=== PATIENT | female | born 1945 | race Caucasian/White ===

== ENCOUNTER 2017-03-20 12:14 | Inpatient (IN) | payer MEDICARE ==
[~2017-03-20] VITALS: Ht 157.5 cm; Wt 51.6 kg
[2017-03-20] MEDS ORDERED: diphenhydrAMINE HCL 50 MG CAP - HS PRN PO (16:15)
[2017-03-20] MEDS ORDERED: diphenhydrAMINE HCL 50 MG/ML VIAL - HS PRN IM (16:15)
[2017-03-20] MEDS ORDERED: MAGNESIUM HYDROXIDE SUSP 30 ML CUP PO PRN (16:15)
[2017-03-20] MEDS ORDERED: ALUMINUM/MAGNESIUM/SIMETH 30 ML CUP PO PRN (16:15)
[2017-03-20] MEDS: ACETAMINOPHEN 325 MG TAB PO PRN (17:48)
[2017-03-20 18:08] VITALS: BP 126/69; PULSE 107; RESP 18; TEMP 98.8; O2SAT 97
[2017-03-20] MEDS ORDERED: PILL SPLITTER OTHER PRN (19:00)
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
[2017-03-20] MEDS: REMOVE OLD NICOTINE PATCH T-DERMAL SCH (21:00)
[2017-03-20] MEDS: hydrOXYzine HCL 50 MG TAB PO PRN ×2 (21:30→21:53)
--- NOTE | 2017-03-20 22:02 | RADRPT ---
EXAM DATE/TIME: 03/20/2017 20:27 [place] COMPARISON: No previous studies available for comparison. INDICATIONS : Left wrist pain post fall today MEDICAL HISTORY : None. SURGICAL HISTORY : None. ENCOUNTER: Initial ACUITY: 1 day PAIN SCORE: 8/10 LOCATION: Left entire wrist FINDINGS: Three view examination of the left wrist demonstrates no soft tissue swelling, dislocation, or fractu re. The carpal bones are in normal alignment. The joint spaces are maintained. Bony mineralization is normal. CONCLUSION: No acute disease. Thanh Canchola MD on March 20, 2017 at 21:59 Board Certified Radiologist. This report was verified electronically.
[2017-03-21] MEDS: ACETAMINOPHEN 325 MG TAB PO PRN ×4 (00:03→14:20)
[2017-03-21 05:55] VITALS: BP 153/76; PULSE 112; RESP 19; TEMP 97.9; O2SAT 98
[2017-03-21] MEDS: NICOTINE 21 MG/24 HR PATCH T-DERMAL SCH (08:25)
[2017-03-21] MEDS: hydrOXYzine HCL 50 MG TAB PO PRN (08:30)
[2017-03-21] MEDS ORDERED: SERTRALINE HCL 50 MG TAB PO ONE (09:00)
[2017-03-21 10:01] LABS: AUTOMATED NEUTROPHIL # 6.2 TH/MM3 (1.8-7.7); BASOPHIL % 0.3 % (0.0-2.0); EOSINOPHIL # 0.2 TH/MM3 (0-0.4); EOSINOPHIL % 2.2 % (0.0-4.0); HEMO FLAGS DIFF FINAL; LYMPH % 8.3 % (9.0-44.0); LYMPHOCYTE # 0.6 TH/MM3 (1.0-4.8); MEAN CELL VOLUME 92.6 FL (80.0-100.0); MEAN CORPUSCULAR HEMOGLOBIN 29.8 PG (27.0-34.0); MEAN CORPUSCULAR HGB CONC 32.2 % (32.0-36.0); MONO % 9.3 % (0.0-8.0); NEUT % 79.9 % (16.0-70.0); PLATELET COUNT 205 TH/MM3 (150-450); RED CELL DISTRIBUTION WIDTH 15.1 % (11.6-17.2); WHITE BLOOD COUNT 7.8 TH/MM3 (4.0-11.0)
--- NOTE | 2017-03-21 10:18 | PD.CONS ---
HPI Service CP Hospitalists Consult Requested By Dr. Cardoza Reason for Consult Assistance with management of multiple medical conditions Primary Care Physician Unknown Diagnoses: History of Present Illness This is a 71-year-old female patient with a past medical history which includes depression, COPD on chronic oxygen therapy, CAD, diastolic CHF last ejection fraction 60% 2016, TIA, CVA with no residual effects, chronic pain as well as history of opioid miss use. This was transferred to [facility] inpatient psychiatric center after being treated outside hospital for fall. Patient was found have suicidal ideations and was transferred to inpatient psychiatric center. As per chart from previous hospital patient had Urine tox positive for amphetamines, shoulder x-ray showed no fracture dislocation, brain CT was negative for acute findings but noted to have cerebral atrophy, chest x- ray showed COPD. Impression from previous hospitalization was recent fall due to toxic encephalopathy secondary to overuse of [place] for pain. Patient this time reports feeling well offers no specific complaints. Patient denies chest pain short of breath nausea vomiting diarrhea, patient fevers or chills Review of Systems Constitutional: COMPLAINS OF: Fatigue, DENIES: Fever, Chills Eyes: DENIES: Blurred vision, Diplopia Respiratory: DENIES: Cough, Sputum production, Shortness of breath Cardiovascular: DENIES: Chest pain, Dyspnea on Exertion, Lower Extremity Edema Gastrointestinal: DENIES: Abdominal pain, Diarrhea, Nausea Neurologic: DENIES: Abnormal gait, Headache, Speech Problems Psychiatric: COMPLAINS OF: Depression, Suicidal Ideation, DENIES: Anxiety, Confusion Past Family Social History Past Medical History depression, COPD on chronic oxygen therapy, CAD, diastolic CHF last ejection fraction 60% 2016, TIA, CVA with no residual effects, chronic pain as well as history of opioid miss use Past Surgical History Hysterectomy and lumbar spine injections Reported Medications Aspirin 81 mg by mouth daily Nitroglycerin 0.1 mg per hour 24 hour patch Vitamin D 12 2000 international units daily Lidoderm 5% patch transdermally daily Cyclobenzaprine 10 mg by mouth 3 times a day Amitriptyline 50 mg by mouth daily at bedtime Dulera 200-5 2 puffs twice a day Fentanyl 25 g transdermal patch every 72 hours Ranitidine 75 mg tablet 1 tablet by mouth daily Duo nebs 4 times a day as needed Zofran 4 mg one tablet sublingually every 8 hours as needed for nausea and vomiting Metoprolol succinate 50 mg 1 tablet daily Lorazepam 0.5 g one tablet by mouth daily as needed for anxiety Allergies: Coded Allergies: Sulfa (Sulfonamide Antibiotics) (Verified Allergy, Severe, 03/20/17) baclofen (Verified Allergy, Severe, 03/20/17) carbamazepine (Verified Allergy, Severe, 03/20/17) celecoxib (Verified Allergy, Severe, 03/20/17) duloxetine (Verified Allergy, Severe, 03/20/17) gabapentin (Verified Allergy, Severe, 03/20/17) milnacipran (Verified Allergy, Severe, 03/20/17) prednisone (Verified Allergy, Severe, 03/20/17) pregabalin (Verified Allergy, Severe, 03/20/17) Active Ordered Medications Current Medications Medications (Trade) Dose Ordered Sig/Christen Route Start Time Stop Time Status Last Admin (Atarax) 50 mg Q6H PRN PO 03/20/17 16:15 03/20/17 21:30 (Benadryl) 50 mg HS PRN PO 03/20/17 16:15 (Benadryl Inj) 50 mg HS PRN IM 03/20/17 16:15 (Tylenol) 650 mg Q4H PRN PO 03/20/17 16:15 03/21/17 04:13 (Milk Of Magnesia Liq) 30 ml DAILY PRN PO 03/20/17 16:15 (Mag-Al Plus Susp Liq) 30 ml Q6H PRN PO 03/20/17 16:15 (Habitrol 21 Mg Patch.24 Hr) 1 patch DAILY T-DERMAL 03/21/17 09:00 Miscellaneous Information 1 HS T-DERMAL 03/20/17 21:00 03/20/17 21:00 (Zoloft) 50 mg DAILY PO 03/22/17 09:00 (Pill Splitter) 1 ea UNSCH PRN OTHER 03/20/17 19:00 (Duoneb Neb) 1 ampule Q6HR NEB PRN NEB 03/20/17 23:45 Family History Brother at 77 secondary to [place] Social History Patient lives at home with her is a retired RN Reports she quit smoking in 2005 Denies EtOH use or illicit drug use Physical Exam Vital Signs Vital Signs Date Time Temp Pulse Resp B/P (MAP) Pulse Ox O2 Delivery O2 Flow Rate FiO2 03/21/17 05:55 97.9 112 19 153/76 (101) 98 03/20/17 18:08 98.8 107 18 126/69 (88) 97 Physical Exam GENERAL: This is a well-nourished, well-developed patient, in no apparent distress. SKIN: No rashes, ecchymoses or lesions. Cool and dry. HEAD: Atraumatic. Normocephalic. No temporal or scalp tenderness. EYES: Pupils equal round and reactive. Extraocular motions intact. No scleral icterus. No injection or drainage. ENT: Nose without bleeding, purulent drainage or septal hematoma. Throat without erythema, tonsillar hypertrophy or exudate. Uvula midline. Airway patent. NECK: Trachea midline. No JVD or lymphadenopathy. Supple, nontender, no meningeal signs. CARDIOVASCULAR: Regular rate and rhythm without murmurs, gallops, or rubs. RESPIRATORY: Clear to auscultation. Breath sounds equal bilaterally. No wheezes , rales, or rhonchi. GASTROINTESTINAL: Abdomen soft, non-tender, nondistended. No hepato-splenomegaly , or palpable masses. No guarding. MUSCULOSKELETAL: Extremities without clubbing, cyanosis, or edema. No joint tenderness, effusion, or edema noted. No calf tenderness. Negative Homans sign bilaterally. NEUROLOGICAL: Awake and alert. Cranial nerves II through XII intact. Motor and sensory grossly within normal limits. Five out of 5 muscle strength in all muscle groups. Normal speech. Laboratory Laboratory Tests Test 03/21/17 09:10 Assessment and Plan Problem List: (1) Major depressive disorder ICD Codes: F32.9 - Major depressive disorder, single episode, unspecified Status: Acute Plan: Management per psychiatric team Patient currently an inpatient psychiatric center (2) HTN (hypertension) ICD Codes: I10 - Essential (primary) hypertension Status: Chronic Plan: Will continue patient's home metoprolol 50 mg by mouth daily Monitor blood pressure trend (3) COPD (chronic obstructive pulmonary disease) ICD Codes: J44.9 - Chronic obstructive pulmonary disease, unspecified Status: Acute Plan: Duo nebs as needed Does not appear to be in acute exacerbation at this time (4) Chronic pain ICD Codes: G89.29 - Other chronic pain Status: Chronic Plan: Patient has history of ventricular arrhythmias use. Review of outpatient records states that patient has been noncompliant in taking more her periods been prescribed recommended Ultram. Patient was also thought to have metabolic encephalopathy secondary to overuse of [place] at outside hospital. Ultram as needed for pain (5) CAD (coronary artery disease) ICD Codes: I25.10 - Atherosclerotic heart disease of [place] coronary artery without angina pectoris Status: Chronic Plan: Continue aspirin 81 mg by mouth daily in addition to metoprolol (6) CHF (congestive heart failure) ICD Codes: I50.9 - Heart failure, unspecified Status: Chronic Plan: Patient does not appear to be in acute exacerbation. Lasix is not listed on patient's home medication reconciliation recommend patient follow-up with PCP/cardiology after discharge (7) TIA (transient ischemic attack) ICD Codes: G45.9 - Transient cerebral ischemic attack, unspecified Status: Chronic Plan: Continue home aspirin 81 mg by mouth daily Assessment and Plan Patient examined. Assessment and plan formulated with Nanci Danielle PA-C. I agree with the above. Problem Qualifiers (1) Major depressive disorder: Qualified Codes: F33.1 - Major depressive disorder, recurrent, moderate Nanci Danielle Mar 21, 2017 10:18 Raphael Casillas DO Mar 27, 2017 12:53
[2017-03-21 10:25] LABS: BICARBONATE 36.5 MEQ/L (21.0-32.0); POTASSIUM 3.1 MEQ/L (3.5-5.1)
[2017-03-21 10:35] LABS: INDIRECT BILIRUBIN 0.4 MG/DL (0.0-0.8); TOTAL BILIRUBIN ADULT 0.5 MG/DL (0.2-1.0)
[2017-03-21] MEDS ORDERED: RANI150T PO (10:47)
[2017-03-21] MEDS ORDERED: METO1TAB9 PO (10:47)
[2017-03-21] MEDS ORDERED: DULE100A INH (10:47)
[2017-03-21] MEDS ORDERED: NORC5TAB PO (10:47)
[2017-03-21] MEDS ORDERED: NITR0.2D T-DERMAL (10:47)
[2017-03-21] MEDS ORDERED: FURO20TA PO (10:47)
[2017-03-21] MEDS ORDERED: AMIT50TA3 PO (10:47)
[2017-03-21] MEDS ORDERED: POTA10CA PO (10:47)
[2017-03-21] MEDS ORDERED: ALBUAER3 INH (10:47)
[2017-03-21] MEDS ORDERED: VENTAER INH (10:47)
[2017-03-21] MEDS ORDERED: ALPR.5 PO (10:47)
[2017-03-21] MEDS: METOPROLOL SUCCINATE 50 MG EXTENDED RELEASE TAB PO SCH (12:00)
[2017-03-21] MEDS: IBUPROFEN 400 MG TAB PO PRN (12:28)
[2017-03-21 17:54] VITALS: BP 121/68; PULSE 90; RESP 17; TEMP 97.7; O2SAT 97
--- NOTE | 2017-03-21 18:16 | HHI.PYPN ---
Subjective Remarks Patient was seen and case discussed with nursing. Patient continues to endorse depressed mood. She is feeling hopeless that she has not been to live for. Though, she denies suicidal ideation plan or intent. Continues to be treated by the medical team. Behaving well on the unit Mental Status Examination Appearance: Appropriate Consciousness: Alert Orientation: Person, Place, Date/Time Speech: Unremarkable Language: Adequate Fund of Knowledge: Adequate Attention and Concentration: Adequate Memory: Unremarkable Mood: Sad Affect: Sad Thought Process & Associations: Logical, Linear Thought Content: Appropriate Hallucination Type: None Delusion Type: None Suicidal Ideation: No Suicidal Plan: No Suicidal Intention: No Homicidal Ideation: No Homicidal Plan: No Homicidal Intention: No Insight: Fair Judgment: Impulsive Results Labs Test 03/21/17 09:10 White Blood Count 7.8 TH/MM3 Red Blood Count 4.00 MIL/MM3 Hemoglobin 11.9 GM/DL Hematocrit 37.0 % Mean Corpuscular Volume 92.6 FL Mean Corpuscular Hemoglobin 29.8 PG Mean Corpuscular Hemoglobin Concent 32.2 % Red Cell Distribution Width 15.1 % Platelet Count 205 TH/MM3 Mean Platelet Volume 9.0 FL Neutrophils (%) (Auto) 79.9 % Lymphocytes (%) (Auto) 8.3 % Monocytes (%) (Auto) 9.3 % Eosinophils (%) (Auto) 2.2 % Basophils (%) (Auto) 0.3 % Neutrophils # (Auto) 6.2 TH/MM3 Lymphocytes # (Auto) 0.6 TH/MM3 Monocytes # (Auto) 0.7 TH/MM3 Eosinophils # (Auto) 0.2 TH/MM3 Basophils # (Auto) 0.0 TH/MM3 CBC Comment DIFF FINAL Differential Comment Blood Urea Nitrogen 9 MG/DL Creatinine 0.44 MG/DL Random Glucose 94 MG/DL Total Protein 6.6 GM/DL Albumin 3.5 GM/DL Calcium Level 9.0 MG/DL Alkaline Phosphatase 77 U/L Aspartate Amino Transf (AST/SGOT) 10 U/L Alanine Aminotransferase (ALT/SGPT) 9 U/L Total Bilirubin 0.5 MG/DL Direct Bilirubin 0.1 MG/DL Sodium Level 144 MEQ/L Potassium Level 3.1 MEQ/L Chloride Level 103 MEQ/L Carbon Dioxide Level 36.5 MEQ/L Anion Gap 5 MEQ/L Estimat Glomerular Filtration Rate 140 ML/MIN Indirect Bilirubin 0.4 MG/DL Thyroid Stimulating Hormone 3rd Gen 0.310 uIU/ML Vitals/IOs Vital Signs Date Time Temp Pulse Resp B/P (MAP) Pulse Ox O2 Delivery O2 Flow Rate FiO2 03/21/17 17:54 97.7 90 17 121/68 (85) 97 Intake and Output 03/21/17 03/21/17 03/22/17 08:00 16:00 00:00 Intake Total 360 ml 240 ml Balance 360 ml 240 ml Assessment & Plan Problem List: (1) Major depressive disorder ICD Codes: F32.9 - Major depressive disorder, single episode, unspecified Assessment & Plan Continue current treatment plan Justification for Cont. Inpt. Patient will decompensate in a less restrictive setting Logan Moran DO Mar 21, 2017 18:16
[2017-03-21 20:55] VITALS: O2SAT 99
[2017-03-21] MEDS: RESP: ALBUTEROL 2.5 MG/IPRATROPIUM 0.5 MG NEB (PRN) NEB (20:55)
[2017-03-21] MEDS: REMOVE OLD NICOTINE PATCH T-DERMAL SCH (21:00)
[2017-03-22] MEDS: IBUPROFEN 400 MG TAB PO PRN (01:39)
[2017-03-22 05:35] VITALS: BP 137/70; PULSE 98; RESP 20; TEMP 98.1
[2017-03-22] MEDS: SERTRALINE HCL 50 MG TAB PO SCH ×2 (08:36→09:00)
[2017-03-22] MEDS: FAMOTIDINE 20 MG TAB PO SCH (08:36)
[2017-03-22] MEDS: METOPROLOL SUCCINATE 50 MG EXTENDED RELEASE TAB PO SCH (08:36)
[2017-03-22] MEDS: NICOTINE 21 MG/24 HR PATCH T-DERMAL SCH (09:00)
[2017-03-22] MEDS: POTASSIUM CHLORIDE 20 MEQ CONTROLLED RELEASE TAB PO SCH ×2 (11:17→16:18)
[2017-03-22] MEDS: ACETAMINOPHEN 325 MG TAB PO PRN ×2 (11:22→21:02)
[2017-03-22] MEDS: ALBUTEROL SULFATE 90 MCG/ACT HFA 8 GM INHALER INH PRN ×2 (16:17→20:59)
--- NOTE | 2017-03-22 17:19 | HHI.PYPN ---
Subjective Remarks Patient was seen and case discussed with nursing. Patient is compliant with medications and behaving well on the unit. Patient is refusing her Zoloft saying it gives her diarrhea. She is agreeable to Remeron. She is very bright and cheerful laughing and joking but still claims passive suicidal ideation. This does not seem to be congruent her behavior throughout the day. No longer asking for pain medications Mental Status Examination Appearance: Appropriate Consciousness: Alert Orientation: Person, Place, Date/Time Speech: Unremarkable Language: Adequate Fund of Knowledge: Adequate Attention and Concentration: Adequate Memory: Unremarkable Mood: Sad Affect: Sad Thought Process & Associations: Logical, Linear Thought Content: Appropriate Hallucination Type: None Delusion Type: None Suicidal Ideation: Yes (passive) Suicidal Plan: No Suicidal Intention: No Homicidal Ideation: No Homicidal Plan: No Homicidal Intention: No Insight: Fair Judgment: Impulsive Results Vitals/IOs Vital Signs Date Time Temp Pulse Resp B/P (MAP) Pulse Ox O2 Delivery O2 Flow Rate FiO2 03/22/17 05:35 98.1 98 20 137/70 (92) 03/21/17 20:55 99 Nasal Cannula 2.00 Intake and Output 03/22/17 03/22/17 03/23/17 08:00 16:00 00:00 Intake Total 240 ml Balance 240 ml Assessment & Plan Problem List: (1) Major depressive disorder ICD Codes: F32.9 - Major depressive disorder, single episode, unspecified Assessment & Plan DC Zoloft. Start Remeron 7.5 mg by mouth daily at bedtime Justification for Cont. Inpt. Patient would decompensate in a less restrictive setting Logan Moran DO Mar 22, 2017 17:19
[2017-03-22 17:51] VITALS: BP 143/67; PULSE 103; RESP 18; TEMP 98.1; O2SAT 94
[2017-03-22] MEDS: MIRTAZAPINE 15 MG TAB PO SCH (20:46)
[2017-03-22] MEDS: REMOVE OLD NICOTINE PATCH T-DERMAL SCH (21:00)
[2017-03-22] MEDS: DULERA INH SCH ×2 (21:00→21:29)
[2017-03-22] MEDS ORDERED: DULERA INH SCH (21:00)
[2017-03-23 05:22] VITALS: BP 147/69; PULSE 84; RESP 16; TEMP 97.6; O2SAT 98
[2017-03-23] MEDS: FAMOTIDINE 20 MG TAB PO SCH (08:39)
[2017-03-23] MEDS: METOPROLOL SUCCINATE 50 MG EXTENDED RELEASE TAB PO SCH (08:39)
[2017-03-23] MEDS: DULERA INH SCH ×2 (08:40→20:53)
[2017-03-23] MEDS: NICOTINE 21 MG/24 HR PATCH T-DERMAL SCH (09:00)
[2017-03-23] MEDS: ACETAMINOPHEN 325 MG TAB PO PRN ×2 (09:13→17:54)
[2017-03-23 10:44] LABS: FREE T4 1.15 NG/DL (0.76-1.46)
[2017-03-23 10:50] LABS: BICARBONATE 34.2 MEQ/L (21.0-32.0); MAGNESIUM 1.9 MG/DL (1.5-2.5); POTASSIUM 3.5 MEQ/L (3.5-5.1)
[2017-03-23] MEDS: IBUPROFEN 400 MG TAB PO PRN ×2 (11:43→20:52)
--- NOTE | 2017-03-23 15:46 | HHI.PYPN ---
Subjective Remarks Patient seen in day room with nurse Juan, patient on nasal oxygen. Chart reviewed. Patient compliant medications. Patient remains depressed states she continue suicidal within the suicide pill if offered. For now continue treatment Review of Systems Except as stated in HPI: all other systems reviewed are Neg Mental Status Examination Appearance: Appropriate Consciousness: Alert Orientation: Person, Place, Date/Time Speech: Unremarkable Language: Adequate Fund of Knowledge: Adequate Attention and Concentration: Adequate Memory: Unremarkable Mood: Sad Affect: Sad Thought Process & Associations: Logical, Linear Thought Content: Appropriate Hallucination Type: None Delusion Type: None Suicidal Ideation: Yes (patient states would take the suicide pill if offered) Suicidal Plan: Yes (patient states would take the suicide pill if offered) Suicidal Intention: Yes (patient states she would take the suicide pill if offered) Homicidal Ideation: No Homicidal Plan: No Homicidal Intention: No Insight: Fair Judgment: Impulsive Results Labs Test 03/23/17 09:33 Blood Urea Nitrogen 14 MG/DL Creatinine 0.63 MG/DL Random Glucose 147 MG/DL Calcium Level 9.5 MG/DL Magnesium Level 1.9 MG/DL Sodium Level 141 MEQ/L Potassium Level 3.5 MEQ/L Chloride Level 101 MEQ/L Carbon Dioxide Level 34.2 MEQ/L Anion Gap 6 MEQ/L Estimat Glomerular Filtration Rate 93 ML/MIN Free Thyroxine 1.15 NG/DL Vitals/IOs Vital Signs Date Time Temp Pulse Resp B/P (MAP) Pulse Ox O2 Delivery O2 Flow Rate FiO2 03/23/17 05:22 97.6 84 16 147/69 (95) 98 03/21/17 20:55 Nasal Cannula 2.00 Assessment & Plan Problem List: (1) Major depressive disorder ICD Codes: F32.9 - Major depressive disorder, single episode, unspecified Assessment & Plan Estimated LOS: days patient continue suicidal with intent taking suicide pill if offered. For now continue treatment Justification for Cont. Inpt. At this time patient will decompensate the placed in a lower level of care Discharge Planning Hopefully patient to return home with her Rolf Dey MD Mar 23, 2017 15:46
--- NOTE | 2017-03-23 16:03 | PD.TTN ---
Patient Problems 1. Discharge planning 2. Medication compliance 3. Knowledge deficit 4. Lack of coping skills Progress Toward Goals Provider Present: Dr. Shaun Dey Provider Input: Patient is a new admission and has not yet been seen. Psychiatric Counselors Present: HELEN Fregoso Psych Therapist Input: Patient is a new admission and has not yet been evaluated. Documentation Scribe: YUNIEL Fregoso Date Resolved: Mar 23, 2017 Lisa Vuong Mar 23, 2017 16:03
[2017-03-23 18:00] VITALS: BP 138/69; PULSE 101; RESP 16; TEMP 98.6; O2SAT 97
[2017-03-23] MEDS: MIRTAZAPINE 15 MG TAB PO SCH (20:52)
[2017-03-23] MEDS: REMOVE OLD NICOTINE PATCH T-DERMAL SCH (21:00)
[2017-03-24 05:10] VITALS: BP 142/84; PULSE 105; PULSE 115; RESP 16; TEMP 97.6; O2SAT 97
[2017-03-24] MEDS: METOPROLOL SUCCINATE 50 MG EXTENDED RELEASE TAB PO SCH (08:22)
[2017-03-24] MEDS: FAMOTIDINE 20 MG TAB PO SCH (08:22)
[2017-03-24] MEDS: DULERA INH SCH ×2 (08:30→20:10)
[2017-03-24] MEDS: NICOTINE 21 MG/24 HR PATCH T-DERMAL SCH (08:35)
[2017-03-24] MEDS: IBUPROFEN 400 MG TAB PO PRN ×2 (09:28→20:31)
[2017-03-24 11:20] VITALS: O2SAT 96
--- NOTE | 2017-03-24 13:13 | HHI.PYPN ---
Subjective Remarks Patient seen in her room with nurse Juan and counselor Lisa, chart reviewed, patient compliant medication. Patient on continuous nasal oxygen, she is calm pleasant. Continues to verify suicidal ideation though today she would not take the suicide pill. She has some insight into how devastating this would be to her family. For now continue treatment Review of Systems Except as stated in HPI: all other systems reviewed are Neg Mental Status Examination Appearance: Appropriate Consciousness: Alert Orientation: Person, Place, Date/Time Speech: Unremarkable Language: Adequate Fund of Knowledge: Adequate Attention and Concentration: Adequate Memory: Unremarkable Mood: Sad Affect: Sad Thought Process & Associations: Logical, Linear Thought Content: Appropriate Hallucination Type: None Delusion Type: None Suicidal Ideation: Yes (patient states would take the suicide pill if offered) Suicidal Plan: Yes (patient states would take the suicide pill if offered) Suicidal Intention: Yes (patient states she would take the suicide pill if offered) Homicidal Ideation: No Homicidal Plan: No Homicidal Intention: No Insight: Fair Judgment: Impulsive Results Vitals/IOs Vital Signs Date Time Temp Pulse Resp B/P (MAP) Pulse Ox O2 Delivery O2 Flow Rate FiO2 03/24/17 11:20 96 Nasal Cannula 2.00 03/24/17 05:10 97.6 105 16 142/84 (103) Intake and Output 03/24/17 03/24/17 03/25/17 08:00 16:00 00:00 Intake Total 0 ml Balance 0 ml Assessment & Plan Problem List: (1) Major depressive disorder ICD Codes: F32.9 - Major depressive disorder, single episode, unspecified Status: Acute Assessment & Plan Patient continues depressed vague suicidal ideation though she is pleasant and cooperative. For now continue treatment Estimated LOS: days Justification for Cont. Inpt. At this time patient will decompensate to place a lower level of care Discharge Planning Meet with patient's to discuss discharge plans Request HC Surrog/Guard Advoc?: No Problem Qualifiers (1) Major depressive disorder: Qualified Codes: F33.1 - Major depressive disorder, recurrent, moderate Rolf Dey MD Mar 24, 2017 13:13
[2017-03-24] MEDS: ACETAMINOPHEN 325 MG TAB PO PRN (15:51)
[2017-03-24 17:53] VITALS: BP 143/63; PULSE 101; RESP 16; TEMP 98.7; O2SAT 95
[2017-03-24] MEDS: MIRTAZAPINE 15 MG TAB PO SCH (20:08)
[2017-03-24] MEDS: REMOVE OLD NICOTINE PATCH T-DERMAL SCH (20:11)
[2017-03-25 01:45] VITALS: O2SAT 96
[2017-03-25] MEDS: RESP: ALBUTEROL 2.5 MG/IPRATROPIUM 0.5 MG NEB (PRN) NEB ×2 (01:45→17:00)
[2017-03-25] MEDS: hydrOXYzine HCL 50 MG TAB PO PRN ×2 (02:00→07:57)
[2017-03-25] MEDS: ACETAMINOPHEN 325 MG TAB PO PRN ×2 (02:01→20:35)
[2017-03-25 05:48] VITALS: BP 129/58; PULSE 92; RESP 20; TEMP 97.4; O2SAT 93
[2017-03-25] MEDS: DULERA INH SCH ×2 (07:55→21:20)
[2017-03-25] MEDS: IBUPROFEN 400 MG TAB PO PRN (07:57)
[2017-03-25] MEDS: FAMOTIDINE 20 MG TAB PO SCH (07:57)
[2017-03-25] MEDS: NICOTINE 21 MG/24 HR PATCH T-DERMAL SCH (07:59)
[2017-03-25] MEDS: METOPROLOL SUCCINATE 50 MG EXTENDED RELEASE TAB PO SCH (07:59)
[2017-03-25] MEDS: ALBUTEROL SULFATE 90 MCG/ACT HFA 8 GM INHALER INH PRN ×2 (09:00→13:00)
--- NOTE | 2017-03-25 11:22 | PD.TTN ---
Patient Problems 1. Discharge planning 2. Medication compliance 3. Knowledge deficit 4. Lack of coping skills Progress Toward Goals Provider Present: Dr. Shaun Dey Provider Input: 03/25/2017; per doctor there is no med change required at this time, patient continues to show some improvement Patient is a new admission and has not yet been seen. Nurse(s) Present: JONATHAN Baldwin Nurse(s) Input: Patient is having coughing episodes, due to COPD issues, she is taking meds and eating meals. Psychiatric Counselors Present: DANIS Estrella Psych Therapist Input: 03/25/2017; Patient will return home when stable, with home health service Patient is a new admission and has not yet been evaluated. Group Spec/RT/OT/DAO Present: SYLWIA Pearce Group Spec/RT/OT/DAO Input: Pateint attends pet therapy group with a pleasant mood Documentation Scribe: DANIS Estrella Date Resolved: Mar 23, 2017 Samara Pierre Mar 25, 2017 11:22
--- NOTE | 2017-03-25 11:29 | HHI.PYPN ---
Subjective Remarks Patient seen in her room with nurse Yolanda, chart review, patient compliant medications. Patient today somewhat vaguely denies suicidal ideation and voices. Though she continues to complain of a somewhat deep and productive cough will have medicine service assess Review of Systems Respiratory: COMPLAINS OF: Cough Except as stated in HPI: all other systems reviewed are Neg Mental Status Examination Appearance: Appropriate Consciousness: Alert Orientation: Person, Place, Date/Time Speech: Unremarkable Language: Adequate Fund of Knowledge: Adequate Attention and Concentration: Adequate Memory: Unremarkable Mood: Sad Affect: Sad Thought Process & Associations: Logical, Linear Thought Content: Appropriate Hallucination Type: None Delusion Type: None Suicidal Ideation: Yes (patient states would take the suicide pill if offered) Suicidal Plan: Yes (patient states would take the suicide pill if offered) Suicidal Intention: Yes (patient states she would take the suicide pill if offered) Homicidal Ideation: No Homicidal Plan: No Homicidal Intention: No Insight: Fair Judgment: Impulsive Results Vitals/IOs Vital Signs Date Time Temp Pulse Resp B/P (MAP) Pulse Ox O2 Delivery O2 Flow Rate FiO2 03/25/17 05:48 97.4 92 20 129/58 (81) 93 03/24/17 11:20 Nasal Cannula 2.00 Intake and Output 03/25/17 03/25/17 03/26/17 08:00 16:00 00:00 Intake Total 1080 ml Balance 1080 ml Assessment & Plan Problem List: (1) Major depressive disorder ICD Codes: F32.9 - Major depressive disorder, single episode, unspecified Status: Acute Assessment & Plan Estimated LOS: days patient mood appears to be improving somewhat remains depressed vague suicidal ideation though denying voices Justification for Cont. Inpt. At this time patient will decompensate if placed in a lower level of care Discharge Planning Probable return home with Request HC Surrog/Guard Advoc?: No Problem Qualifiers (1) Major depressive disorder: Qualified Codes: F33.1 - Major depressive disorder, recurrent, moderate Rolf Dey MD Mar 25, 2017 11:29
[2017-03-25] MEDS ORDERED: LEVOFLOXACIN 500 MG TAB PO STA (16:58)
--- NOTE | 2017-03-25 17:51 | RADRPT ---
EXAM DATE/TIME: 03/25/2017 17:12 [facility] COMPARISON: No previous studies available for comparison. INDICATIONS : Cough and congestion. MEDICAL HISTORY : None. SURGICAL HISTORY : None. ENCOUNTER: Initial ACUITY: 3 days PAIN SCORE: 0/10 LOCATION: Bilateral chest FINDINGS: Lungs are hyperexpanded without significant focal pleural or parenchymal opacities. Probable tortuous thoracic aorta. Cardiac silhouette is within normal limits. Bony thorax is intact. CONCLUSION: 1. No acute cardiopulmonary disease. Joe Harper MD on March 25, 2017 at 17:49 Board Certified Radiologist. This report was verified electronically.
[2017-03-25 18:00] VITALS: BP 150/78; PULSE 115; RESP 20; TEMP 99.4; O2SAT 94
[2017-03-25] MEDS ORDERED: predniSONE 20 MG TAB PO ONE (18:00)
[2017-03-25] MEDS: RESP: ALBUTEROL 2.5 MG/IPRATROPIUM 0.5 MG NEB (SCH) NEB (19:28)
[2017-03-25 19:31] VITALS: O2SAT 93
[2017-03-25] MEDS: MIRTAZAPINE 15 MG TAB PO SCH (20:33)
[2017-03-25] MEDS: REMOVE OLD NICOTINE PATCH T-DERMAL SCH (21:00)
[2017-03-26] MEDS: ACETAMINOPHEN 325 MG TAB PO PRN ×3 (00:51→20:41)
[2017-03-26] MEDS: RESP: ALBUTEROL 2.5 MG/IPRATROPIUM 0.5 MG NEB (PRN) NEB ×2 (00:55→23:59)
[2017-03-26] MEDS: IBUPROFEN 400 MG TAB PO PRN ×2 (06:08→16:09)
[2017-03-26 06:09] VITALS: BP 149/73; PULSE 117; RESP 20; TEMP 98.3; O2SAT 93
[2017-03-26] MEDS: RESP: ALBUTEROL 2.5 MG/IPRATROPIUM 0.5 MG NEB (SCH) NEB ×4 (08:26→19:14)
[2017-03-26 08:29] VITALS: O2SAT 84
[2017-03-26] MEDS: NICOTINE 21 MG/24 HR PATCH T-DERMAL SCH (09:00)
[2017-03-26] MEDS: METOPROLOL SUCCINATE 50 MG EXTENDED RELEASE TAB PO SCH (09:44)
[2017-03-26] MEDS: FAMOTIDINE 20 MG TAB PO SCH (09:44)
[2017-03-26] MEDS: LEVOFLOXACIN 500 MG TAB PO SCH (09:44)
[2017-03-26] MEDS: hydrOXYzine HCL 50 MG TAB PO PRN ×2 (09:44→20:55)
[2017-03-26] MEDS: predniSONE 20 MG TAB PO SCH (09:44)
[2017-03-26] MEDS: DULERA INH SCH ×2 (09:45→20:44)
--- NOTE | 2017-03-26 10:14 | HHI.PYPN ---
Subjective Remarks Patient seen in her room with nurse Nicolasa, patient still has some productive cough. Says she is feeling somewhat better since she preplacement antibiotics. Otherwise patient's mood remains somewhat depressed but overall stable. Is calm cooperative and pleasant with me. For now continue treatment Review of Systems Except as stated in HPI: all other systems reviewed are Neg Mental Status Examination Appearance: Appropriate Consciousness: Alert Orientation: Person, Place, Date/Time Speech: Unremarkable Language: Adequate Fund of Knowledge: Adequate Attention and Concentration: Adequate Memory: Unremarkable Mood: Sad Affect: Sad Thought Process & Associations: Logical, Linear Thought Content: Appropriate Hallucination Type: None Delusion Type: None Suicidal Ideation: Yes (patient states would take the suicide pill if offered) Suicidal Plan: Yes (patient states would take the suicide pill if offered) Suicidal Intention: Yes (patient states she would take the suicide pill if offered) Homicidal Ideation: No Homicidal Plan: No Homicidal Intention: No Insight: Fair Judgment: Impulsive Results Vitals/IOs Vital Signs Date Time Temp Pulse Resp B/P (MAP) Pulse Ox O2 Delivery O2 Flow Rate FiO2 03/26/17 08:29 84 Nasal Cannula 2.00 03/26/17 06:09 98.3 117 20 149/73 (98) Intake and Output 03/26/17 03/26/17 03/27/17 08:00 16:00 00:00 Intake Total 120 ml 480 ml Balance 120 ml 480 ml Assessment & Plan Problem List: (1) Major depressive disorder ICD Codes: F32.9 - Major depressive disorder, single episode, unspecified Status: Acute Assessment & Plan Estimated LOS: days patient now well somewhat vague about suicidality shows improvement in her affect and mood. She is compliant medications. Continue to work with medical service related to patient's pulmonary issues Justification for Cont. Inpt. If this time patient decompensated placed in a lower level of care Discharge Planning Consider return home to Request HC Surrog/Guard Advoc?: No Problem Qualifiers (1) Major depressive disorder: Qualified Codes: F33.1 - Major depressive disorder, recurrent, moderate Rolf Dey MD Mar 26, 2017 10:14
--- NOTE | 2017-03-26 10:55 | HHI.PR ---
Subjective Remarks f/u today for copd flare pt reports starting to feel better with rx. Objective Vitals nad heart reg lung rhonci/wheeze bilaterally abd s/nt ext no edema Vital Signs Date Time Temp Pulse Resp B/P (MAP) Pulse Ox O2 Delivery O2 Flow Rate FiO2 03/26/17 08:29 84 Nasal Cannula 2.00 03/26/17 06:09 98.3 117 20 149/73 (98) 93 03/25/17 19:31 93 Nasal Cannula 2.00 03/25/17 18:00 99.4 115 20 150/78 (102) 94 03/26/17 03/26/17 03/27/17 15:00 23:00 07:00 Intake Total 480 ml Balance 480 ml Intake Oral 480 ml Result Diagram: 03/23/1733 A/P Problem List: (1) COPD (chronic obstructive pulmonary disease) ICD Codes: J44.9 - Chronic obstructive pulmonary disease, unspecified Status: Acute Plan: acute copd exacerbation cont nebs. levaquin and po prednisone. add mucinex today pt hoping to avoid iv solumedrol.. she reports steroids make her "mad and angry" will f/u (2) Major depressive disorder ICD Codes: F32.9 - Major depressive disorder, single episode, unspecified Status: Acute Plan: Management per psychiatric team Patient currently an inpatient psychiatric center (3) HTN (hypertension) ICD Codes: I10 - Essential (primary) hypertension Status: Chronic Plan: Will continue patient's home metoprolol 50 mg by mouth daily Monitor blood pressure trend (4) Chronic pain ICD Codes: G89.29 - Other chronic pain Status: Chronic Plan: Patient has history of ventricular arrhythmias use. Review of outpatient records states that patient has been noncompliant in taking more her periods been prescribed recommended Ultram. Patient was also thought to have metabolic encephalopathy secondary to overuse of [place] at outside hospital. Ultram as needed for pain (5) CAD (coronary artery disease) ICD Codes: I25.10 - Atherosclerotic heart disease of [place] coronary artery without angina pectoris Status: Chronic Plan: Continue aspirin 81 mg by mouth daily in addition to metoprolol (6) CHF (congestive heart failure) ICD Codes: I50.9 - Heart failure, unspecified Status: Chronic Plan: Patient does not appear to be in acute exacerbation. Lasix is not listed on patient's home medication reconciliation recommend patient follow-up with PCP/cardiology after discharge (7) TIA (transient ischemic attack) ICD Codes: G45.9 - Transient cerebral ischemic attack, unspecified Status: Chronic Plan: Continue home aspirin 81 mg by mouth daily Problem Qualifiers (1) Major depressive disorder: Qualified Codes: F33.1 - Major depressive disorder, recurrent, moderate Chad Marrero MD Mar 26, 2017 10:55
[2017-03-26] MEDS ORDERED: guaiFENesin E.R. 600 MG TAB PO ONE (11:00)
[2017-03-26 18:16] VITALS: BP 150/67; PULSE 113; RESP 19; TEMP 98.3; O2SAT 94
[2017-03-26 19:16] VITALS: O2SAT 95
[2017-03-26] MEDS: MIRTAZAPINE 15 MG TAB PO SCH (20:39)
[2017-03-26] MEDS: guaiFENesin E.R. 600 MG TAB PO SCH (20:40)
[2017-03-26] MEDS: REMOVE OLD NICOTINE PATCH T-DERMAL SCH (20:42)
[2017-03-27] MEDS: ACETAMINOPHEN 325 MG TAB PO PRN ×5 (00:49→17:26)
[2017-03-27] MEDS: hydrOXYzine HCL 50 MG TAB PO PRN ×2 (03:47→11:52)
[2017-03-27] MEDS: IBUPROFEN 400 MG TAB PO PRN ×2 (03:49→11:52)
[2017-03-27] MEDS: RESP: ALBUTEROL 2.5 MG/IPRATROPIUM 0.5 MG NEB (PRN) NEB (03:52)
[2017-03-27 05:56] VITALS: BP 162/77; PULSE 100; RESP 28; O2SAT 86
[2017-03-27] MEDS: RESP: ALBUTEROL 2.5 MG/IPRATROPIUM 0.5 MG NEB (SCH) NEB ×3 (08:12→16:30)
[2017-03-27] MEDS: FAMOTIDINE 20 MG TAB PO SCH (08:39)
[2017-03-27] MEDS: guaiFENesin E.R. 600 MG TAB PO SCH (08:39)
[2017-03-27] MEDS: METOPROLOL SUCCINATE 50 MG EXTENDED RELEASE TAB PO SCH (08:39)
[2017-03-27] MEDS: LEVOFLOXACIN 500 MG TAB PO SCH (08:39)
[2017-03-27] MEDS: DULERA INH SCH (08:40)
[2017-03-27] MEDS: NICOTINE 21 MG/24 HR PATCH T-DERMAL SCH (08:42)
[2017-03-27] MEDS: predniSONE 20 MG TAB PO SCH (08:44)
--- NOTE | 2017-03-27 08:53 | HHI.PR ---
Subjective Remarks feeling a little better again. Objective Vitals heart reg lung tanya wheeze/rhonci abd s/nt ext no edema Vital Signs Date Time Temp Pulse Resp B/P (MAP) Pulse Ox O2 Delivery O2 Flow Rate FiO2 03/27/17 08:14 Nasal Cannula 2.00 03/27/17 05:56 100 28 162/77 (105) 86 03/26/17 19:16 95 Nasal Cannula 2.00 03/26/17 18:16 98.3 113 19 150/67 (94) 94 Result Diagram: 03/23/17 0933 A/P Problem List: (1) COPD (chronic obstructive pulmonary disease) ICD Codes: J44.9 - Chronic obstructive pulmonary disease, unspecified Status: Acute Plan: acute copd exacerbation cont nebs. levaquin and po prednisone. added mucinex pt hoping to avoid iv solumedrol.. she reports steroids make her "mad and angry" will f/u (2) Major depressive disorder ICD Codes: F32.9 - Major depressive disorder, single episode, unspecified Status: Acute Plan: Management per psychiatric team Patient currently an inpatient psychiatric center (3) HTN (hypertension) ICD Codes: I10 - Essential (primary) hypertension Status: Chronic Plan: Will continue patient's home metoprolol 50 mg by mouth daily Monitor blood pressure trend (4) Chronic pain ICD Codes: G89.29 - Other chronic pain Status: Chronic Plan: Patient has history of ventricular arrhythmias use. Review of outpatient records states that patient has been noncompliant in taking more her periods been prescribed recommended Ultram. Patient was also thought to have metabolic encephalopathy secondary to overuse of [place] at outside hospital. Ultram as needed for pain (5) CAD (coronary artery disease) ICD Codes: I25.10 - Atherosclerotic heart disease of [place] coronary artery without angina pectoris Status: Chronic Plan: Continue aspirin 81 mg by mouth daily in addition to metoprolol (6) CHF (congestive heart failure) ICD Codes: I50.9 - Heart failure, unspecified Status: Chronic Plan: Patient does not appear to be in acute exacerbation. Lasix is not listed on patient's home medication reconciliation recommend patient follow-up with PCP/cardiology after discharge (7) TIA (transient ischemic attack) ICD Codes: G45.9 - Transient cerebral ischemic attack, unspecified Status: Chronic Plan: Continue home aspirin 81 mg by mouth daily Problem Qualifiers (1) Major depressive disorder: Qualified Codes: F33.1 - Major depressive disorder, recurrent, moderate Chad Marrero MD Mar 27, 2017 08:53
[2017-03-27] MEDS ORDERED: MIRTA15 PO (14:59)
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
[2017-03-27] MEDS ORDERED: LEVA500T33 PO (15:53)
[2017-03-27] MEDS ORDERED: guaiFENesin ER PO (15:53)
[2017-03-27] MEDS ORDERED: PRED10 PO (15:53)
[2017-03-27 16:30] VITALS: O2SAT 92
[2017-03-27 17:46] VITALS: BP 144/71; PULSE 102; RESP 26; TEMP 98.2; O2SAT 91
== END 2017-03-27 18:20 | disposition home or self-care (01) | DRG 885 ==
LOC: H250 15:25 → H4EA 03-24 17:00
PROVIDERS: ADMIT Psychiatry & Neurology Psychiatry; ATTEND Psychiatry & Neurology Psychiatry
DX: F33.1 Major depressive disorder, recurrent, moderate (principal); I11.0 Hypertensive heart disease with heart failure; I50.32 Chronic diastolic (congestive) heart failure; Z99.81 Dependence on supplemental oxygen; J44.1 Chronic obstructive pulmonary disease with (acute) exacerbation; I25.10 Atherosclerotic heart disease of native coronary artery without angina pectoris; G89.29 Other chronic pain; Z86.73 Personal history of transient ischemic attack (TIA), and cerebral infarction without residual deficits; Z87.891 Personal history of nicotine dependence; Z88.2 Allergy status to sulfonamides; Z88.8 Allergy status to other drugs, medicaments and biological substances
CPT/HCPCS: 71010; 73110; 80048; 80076; 83735; 84439; 84443; 85025; 94640; 94664; J7512